=== PATIENT | female | born 1985 | race Caucasian/White ===

== ENCOUNTER 2016-09-01 14:57 | Inpatient (IN) | payer BC ==
[~2016-09-01 14:57] MED LIST: ACYCLOVIR; CULTURELLE1 CAP PO; KEFLEX500 MG PO; MUCINEX; OMNICEF300 MG PO; ORTHO TRI-7 DAYSX 3; ROCEPHIN IV; TRIVORA-281 TAB PO; TYLENOL; TYLENOL650 MG PO; ZITHROMAX250MG Z-PAK PO; ZOFRAN4 MG PO; [UNRECOGNIZED DRUG - OTHER] IV
[2016-09-01] MEDS ORDERED: LIPITOR10 M1 PO (15:10)
[2016-09-01] MEDS ORDERED: CALCIUM500 M3 PO (15:11)
[2016-09-01] MEDS ORDERED: VITAMIN D31000 UNI3 PO (15:11)
[2016-09-01] MEDS ORDERED: MULTIVITAMINS1 EAC6 PO (15:11)
[2016-09-01] MEDS ORDERED: PROAIR HFA8.5 GM INH (15:21)
[2016-09-02 05:26] LABS: BASO % 0.2 % (0-2); EOS % 0.2 % (0-7); HCT-HEMATOCRIT 28.1 % (34.0-49.0); HGB-HEMOGLOBIN 8.9 gm/dl (12.0-15.5); IMMATURE GRANULOCYTES ABSOLUTE 0.01 tho/cmm (0-0.03); IMMATURE GRANULOCYTES PERCENT 0.2 % (0-0.3); LYMPH % 20.7 % (20-45); MCH (MEAN CORPUSCULAR HGB) 30.6 pg (28.0-32.0); MCHC MEAN CORPUSCULAR HGB CONC 31.7 % (32.0-36.0); MCV (MEAN CELL VOLUME) 96.6 fl (82.0-96.0); MEAN PLATELET VOLUME 11.5 cmc (9.4-12.4); MONO % 7.4 % (0-12); MONOCYTE ABSOLUTE COUNT 0.4 tho/cmm (0.0-1.2); NEUTROPHIL ABSOLUTE COUNT 3.5 tho/cmm (1.6-8.0); NEUTROPHIL-AUTOMATED 3.5 tho/cmm (1.6-8.0); NEUTROPHILS % 71.3 % (40-80); RED BLOOD COUNT 2.91 mil/cmm (4.00-5.20); RED CELL DISTRIBUTION WIDTH 16.2 % (12.4-16.4); WHITE BLOOD COUNT 4.9 tho/cmm (4.0-10.0)
[2016-09-02 07:15] LABS: PLATELET COUNT 32 tho/cmm (150-450)
[2016-09-02] MEDS ORDERED: IRON325 M3 PO (12:35)
== END 2016-09-02 15:04 | DRG 813 ==
LOC: 5WE 14:57
PROVIDERS: ADMIT Internal Medicine Medical Oncology
DX: D69.6 Thrombocytopenia, unspecified (principal); N92.0 Excessive and frequent menstruation with regular cycle
CPT/HCPCS: J1200; J1568; J2930; P9031; P9033